=== PATIENT | female | born 1980 | race Caucasian/White ===

== ENCOUNTER 2018-12-01 10:00 | Outpatient (RCR) | payer SELFPAY ==
--- NOTE | 2018-10-14 17:17 | HP.PTEVAL ---
Patient's Visit Information CHRISTOPHER JAY is a 38 year old F referred to Physical Therapy by DANE MEDINA with a diagnosis of LEFT SHOULDER TENDONITIS. Date of Evaluation: 10/14/18 Physical Therapist: Amberly Matos PT, Cert MDT - Visit Plan Frequency: 2-3x /Week Duration: 4-6 Weeks Plan: FOCUS ON WRITTEN HEP. POSTURE CORRECTION/STRENGTHENING, INSTRUCTION IN APPROPRIATE BODY MECHANICS AND ACTIVITY MODIFICATIONS. MAGUI UE ROM, STRETCHING AND STRENGTHENING. HEP INSTRUCTION. 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 Disability: NO. Present symptoms: LEFT SHOULDER PAIN. NO NUMBNESS OR TINGLING. Present since: CHRONIC WITH A FLARE UP 3 WEEKS AGO. Pain Scale: Worst - 7/10 Least - 0/10. Currently: 0/10. Commenced as a result of: NO APPARENT REASON. 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 Symptoms at onset: LEFT SHOULDER. Worse: TWISTING IT, REACHING BEHIND BACK, HANGING LAUNDRY, SWEEPING WITH BROOM. Better: REST, CHANGE POSITION, AVOID AGGREVATING ACTIVITIES, IBUPROFEN. Disturbed sleep: YES. Previous history/Previous treatment: H/O OF LEFT SHOULDER PAIN FOR YEARS WITH INTERMITTENT FLARE UPS MAINLY SELF TREATED. THIS EPISODE - CORTISONE SHOT ABOUT A WEEK AGO - PATIENT REPORTS THAT HELPED A LOT. Dizziness: NO. Tinnitis: NO. Nausea: NO. Shortness of Breath: NO. Difficulty Swollowing: NO. Gait: NORMAL. Accidents: NO. Unexplained weight loss: NO. Imaging: RECENT LEFT SHOULDER X-RAY - PATIENT REPORTS SHE WAS ORIGINALLY TOLD TENDONITS AND THEN DX'S WITH SMALL RCT. PMH/Recent major surgery: UNREMARKABLE. PLOF (Prior Level of Function): UNLIMITED - Objective Sitting Posture/Standing Posture: POOR. FORWARD HEAD AND ROUNDED SHOULDERS. NO TORTICOLLIS. Active Correction of posture: NE. Other Observations: INDEP GAIT AND TRANSFERS. Motor deficit: RIGHT UE 5/5. LEFT SHOULDER: FLEX 3-/5, ABD 3-/5, IR 2/5, ER 2+/5. ELBOW 4/5, INSOLE REINFORCER 35LBS. ACTUALLY 35 LBS MAGUI AND PATIENT REPORTS RIGHT WRIST IS SORE FROM WORKING OUTSIDE YESTERDAY. Sensory deficit: NO. ROM deficit: AROM LEFT SHOULDER FLEX 120 DEG, ABD 90 DEG. PROM LEFT SHOULDER IN SUPINE FLEX 130 DEG, ABD 123 DEG, IR/ER 23 DEG/70 DEG (WITH 80 DEG ABD). INTERNAL ROTATION VERY PAINFUL AND LIMITED. Reflexes: NT. Dural Signs: NT. Cervical Mvmt Loss: CERVICAL ROM WFL AND TESTING DOES NOT PROVOKE PAIN. Postural strength: POOR. Palpation: MILD TENDERNESS OF ENTIRE LEFT SHOULDER REGION. - Goals Goal 1:: DECREASE C/O LEFT SHOULDER PAIN Goal Time Frame: 4-6 Weeks Goal 2:: IMPROVE LEFT UE FUNCTIONAL ROM Goal Time Frame: 4-6 Weeks Goal 3:: IMRPOVE LEFT UE FUNCTIONAL STRENGTH Goal Time Frame: 4-6 Weeks Goal 4:: INDEP HEP FOR CONTINUED IMPROVEMENT ONCE FORMAL PHYSICAL THERAPY CONCLUDES. Goal Time Frame: 4-6 Weeks - Rehabilitation Potential Rehabilitation Potential: Fair - Anticipated Interventions Patient/Client Instruction: Educate patient on: Condition, Plan of Care, Risk Factors, Benefits of Fitness Program For the Purpose of:: To improve self management Therapeutic Exercise to Include: Strength training, Body mechanics, Postural training, Flexibilty training, Passive ROM, Active ROM, Scapular Strength/Stabilization For the Purpose of:: To decrease pain, To increase ROM, To improve muscle performance and motor function, To increase tolerance to activity/condition/position, To improve ability of physical actions for home/community/work/leisure Manual Therapy Techniques to Include: Mobilization, Passive ROM, Soft tissue mobilization Comment: LEFT SHOULD JOINT MOBS AND PROM For the Purpose of:: To decrease pain, To increase ROM, To improve muscle performance and motor function, To decrease soft tissue restriction, To increase flexibility/ROM TENS: Yes Thermo therapy (hot pack): Yes Ultrasound (thermal/non thermal): Yes For the Purpose of:: To decrease pain, To decrease swelling/inflammation, To increase ROM, To improve nutrient delivery to tissue Thank you for the opportunity to evaluate your patient. For Medicare and Medicare HMO plans, please review the plan of care and approve it. It will need to be FAXED BACK to us at [phone] for Medicare purposes. For Medicare only, by signing this I certify the plan of care. Please let me know if there are questions or concerns regarding this plan of care. Physician Signature: Date:
--- NOTE | 2018-12-01 11:32 | HP.PTDCSUM_ITS ---
HP - PT D/C Summary It has been my pleasure to treat CHRISTOPHER JAY under orders from DANE MEDINA, for the diagnosis of LEFT SHOULDER TENDONITIS for a total of 9 visit(s). Discharge Date: Please see the following information for a summary of their discharge status. - Subjective Subjective: STATES SHE WAS ON VACATION LAST WEEK. PATIENT REPORTS HER SHOULDER IS DOING BETTER. SHE REPORTS IF SHE EXERCISES TOO MUCH IT FLARES UP. SHE REPORTS IT STILL CRACKLES SOMETIMES WITH CERTAIN MVMTS AND THAT IS WHAT BOTHERS IT THE MOST. - Pain LEFT SHOULDER Pain Intensity (Out of 10): 1 - Overall Improvement % Improvement: 80 - Objective Objective/Function: PATIENT WITH FULL LEFT SHOULDER ROM NOW ALL PLANES EXCEPT FORWARD FLEXION IN LYING (170 DEG). THIS AFFECTS ABD WELL MOVING ARM MORE INTO SCAPTION WITH TESTING OF ABD IN SUPINE. LEFT SHOULDER STRENGTH IN MID- RANGE: FLEX 4/5, ABD 4/5, IR 5/5, ER 4-/5. SHE IS INDEP WITH A HEP AND APPROPRIATE FOR DISCHARGE TO HEP AT THIS TIME. INSTRUCTED PATIENT TO RETURN TO MD IF SHE DOES NOT CONTINUE TO IMPROVE OR WORSENS. - Goals Goal 1:: DECREASE C/O LEFT SHOULDER PAIN Goal Progress: Goal Met Goal 2:: IMPROVE LEFT UE FUNCTIONAL ROM Goal Progress: Goal Met Goal 3:: IMRPOVE LEFT UE FUNCTIONAL STRENGTH Goal Progress: Goal Met Goal 4:: INDEP HEP FOR CONTINUED IMPROVEMENT ONCE FORMAL PHYSICAL THERAPY CONCLUDES. Goal Progress: Goal Met - Plan Plan: D/C TO INDP HEP. PATIENT IS AGREEABLE. - D/C Information If there are questions or concerns regarding this patient's physical therapy, please feel free to call me at [phone]. Thank you for the referral of this patient. Sincerely, Amberly Matos, PT, Cert MDT
== END 2018-12-01 15:16 | disposition home or self-care (01) ==
LOC: PT 10:00
PROVIDERS: Family Provider Family Medicine; PCP Family Medicine
DX: M75.100 Unspecified rotator cuff tear or rupture of unspecified shoulder, not specified as traumatic (principal)
CPT/HCPCS: 97014; 97035; 97110; 97140; 97530; G0283

== ENCOUNTER → 2022-11-12 | Outpatient (CLI) | payer SELFPAY ==
--- NOTE | 2022-11-12 13:39 | BI_ITS ---
MAMMOGRAPHY - BILATERAL SCREENING REASON FOR EXAM: Female, 42 years old. Routine annual screening examination. PERTINENT HISTORY: Grandmother with breast cancer. TECHNIQUE: Digital bilateral breast renetta (3D mammographic acquisition) in the CC and MLO projections. 2-D mediolateral oblique (MLO) and craniocaudad (CC) views of both breasts were obtained. CAD: Full Field Digital Mammography with Computer Added Detection was performed. COMPARISON: None. Baseline examination. FINDINGS: Breast Composition: Portions of the breasts are extremely dense which lowers sensitivity of mammography. Finding 1: Indeterminate clustered microcalcifications in the right upper slightly outer breast. Further assessment with spot magnification views is recommended. Finding 2: Indeterminate clustered microcalcifications in the left lower inner breast. Further assessment with spot magnification views is recommended. No other significant abnormalities are identified. BI/SCRN MAMM (CAD)W/RENETTA BILAT IMPRESSION: Further imaging evaluation recommended, as described above. (E) Recall Side: Both Breasts ASSESSMENT CATEGORY: BIRADS Category 0: Incomplete. Need additional imaging evaluation. A letter regarding these results will be sent to the patient by the facility within 30 days. Approximately 10% of breast cancers are not detected by mammography. A normal mammogram should not delay biopsy of a clinically suspicious abnormality. Electronically Signed: Rigoberto Graham MD at 8:29 EDT ,
== END | disposition home or self-care (01) ==
LOC: OPBI 13:34
PROVIDERS: PCP Family Medicine; Referring Provider Nurse Practitioner Family; Visit Provider Nurse Practitioner Family
DX: Z12.31 Encounter for screening mammogram for malignant neoplasm of breast (principal)
CPT/HCPCS: 77063; 77067

== ENCOUNTER → 2022-11-25 | Outpatient (CLI) | payer SELFPAY, OTHER ==
--- NOTE | 2022-11-25 08:56 | BI_ITS ---
MAMMOGRAPHY - BILATERAL DIAGNOSTIC REASON FOR EXAM: Female, 42 years old. Abnormal screening mammogram. PERTINENT HISTORY: Grandmother with breast cancer. TECHNIQUE: Digital bilateral breast vicente (3D mammographic acquisition) in the CC and MLO projections. 2-D mediolateral oblique (MLO) and craniocaudad (CC) views of both breasts were obtained. CAD: Full Field Digital Mammography with Computer Added Detection was performed. COMPARISON: Comparison is made with prior study dated November 12, 2022. FINDINGS: Breast Composition: The breasts are extremely dense, which lowers the sensitivity of mammography. Once again, there is a cluster microcalcifications in the upper slightly outer aspect of the right breast. Biopsy is recommended. No focal clustering is seen in the left breast. No other significant abnormalities are identified. BI/DIAG MAMM W/CAD, BILAT IMPRESSION: Persistent cluster of microcalcifications in the upper slightly outer aspect of the right breast. Biopsy is recommended. ASSESSMENT CATEGORY: BIRADS Category 4: Suspicious - Biopsy Should Be Considered. A letter regarding these results will be sent to the patient by the facility within 30 days. Approximately 10% of breast cancers are not detected by mammography. A normal mammogram should not delay biopsy of a clinically suspicious abnormality. Electronically Signed: Chirag De La Paz MD at 10:10 EDT ,
== END | disposition home or self-care (01) ==
PROVIDERS: PCP Family Medicine; Referring Provider Nurse Practitioner Family; Visit Provider Nurse Practitioner Family
DX: R92.8 Other abnormal and inconclusive findings on diagnostic imaging of breast (principal); Z80.3 Family history of malignant neoplasm of breast
CPT/HCPCS: 77066

== ENCOUNTER → 2022-12-09 | Outpatient (CLI) | payer SELFPAY, OTHER ==
--- NOTE | 2022-12-09 | BRBX_PTH ---
PATIENT: CHRISTOPHER JAY LOC: [facility] U#:[id number] AGE/SX: 42/F ROOM: RE12/09/[address]: Dr. Celeste Carrera MD : 1980 BED: DIS: 12/09/2022 SPEC #: [id number] RECD: 12/09/22 13:52 STATUS: CLARISSA REJudie #: [id number] SAMULE: 12/09/22 00:[address]: Celeste Carrera DEPT: SURGICAL PATHOLOGY RECD BY: Reno Templeton ENTERED: 12/09/22 13:52 SP TYPE: BREAST BX OTHR DR: Dr. Mark Mora MD Tissues: Right breast, NOS Procedures: Surgery Specimen Level IV HEADER OPERATION: Right breast stereotactic needle core biopsy PRE-OP DIAGNOSIS: Microcalcifications lateral retroareolar area TISSUE SUBMITTED: Right breast ISCHEMIC TIME: 2 minutes FIXATION TIME: 7 hours MICROSCOPIC DIAGNOSIS Right breast, stereotactic core biopsy: Fibrocystic change with rare polarizable microcalcifications. Focal intraductal hyperplasia without atypia. No evidence of malignancy. AM:deb 12/10/2022 MICROSCOPIC DESCRIPTION Slides are reviewed. GROSS DESCRIPTION Received is one container labeled with the patient's name and not further designated. The specimen consists of multiple irregular and elongated fragments of curry-yellow soft tissue that in aggregate measure 5.5 x 3.5 x 0.2 cm. The specimen is totally submitted in two cassettes. / AM:deb 12/09/2022 TC:5 CPT: 93741
--- NOTE | 2022-12-09 12:48 | OP.PCM_ITS ---
Report of Operation Date of Procedure: 12/09/22 Pre-Operative Diagnosis: Right breast microcalcifications Post-Operative Diagnosis: Same Surgery/Procedure Performed:: Stereotactic guided right breast biopsy Surgeon: Celeste Carrera Type of Anesthesia: Local Specimen's removed: right breast microcalc. Estimated Blood Loss (mL): 150 CC Description of Procedure: Procedure: Right stereotactic core biopsy Indications: 42 year-old female with microcalc in the adjacent to retroareolar of the right breast. Risk benefits were discussed the patient and she elected to proceed with stereotactic core biopsy with clip placement Description of procedure: Patient was brought into the mammography suite and laid prone on the stereotactic table. A timeout was completed verifying correct patient, procedure, site, specially, prior to beginning procedure. The right breast was prepped and draped in usual sterile fashion and using local anesthesia was obtained with 1% lidocaine with epi. Patient's right breast was positioned and placed into compression. Initial film showed calcifications are in the center of the compression paddle. 15? views were then taken. The calcifications were localized. The left breast was prepped draped in usual sterile fashion. An 8-gauge mammotome was set up according to the digital coordinates. The tract of the mammotome was anesthetized with local anesthesia and an incision was made with the 11 blade scalpel at the entry site. The mammotome was advanced to the prefire state. Pre-prior films were checked and verified. The mammotome was fired. Post fire films were also checked and verified. Biopsies were taken from from 1:00 to 12:00. The specimen was x- rayed and some representation of the calcifications were within the specimen- however calcifications were more scattered through this area and not clustered. Mammotome clip was placed at the 12 o'clock position. Patient did have some bleeding but 150 cc of blood loss initially did lose the first petite clip another 1 was placed. The mammotome was removed from the breast. An additional films were taken which showed all calcifications were removed and a clip was in place. Pressure was held for hemostasis for 25 minutes. Once hemostasis was assured the wound was dressed with Steri-Strips and OpSite. The patient tolerated the procedure well and was discharged from the mammography suite good condition. Complications none
== END | disposition home or self-care (01) ==
PROVIDERS: PCP Family Medicine; Referring Provider Surgery; Visit Provider Surgery
DX: R92.8 Other abnormal and inconclusive findings on diagnostic imaging of breast (principal)
CPT/HCPCS: 19082; 19081; 88305; J7050

== ENCOUNTER → 2023-12-12 | Outpatient (CLI) | payer SELFPAY ==
--- NOTE | 2023-12-12 09:04 | BI_ITS ---
MAMMOGRAPHY - BILATERAL DIAGNOSTIC REASON FOR EXAM: Female, 43 years old. Palpable lump in the upper inner aspect of the right breast. PERTINENT HISTORY: Grandmother with breast cancer. Prior right stereotactic breast biopsy. TECHNIQUE: Digital bilateral breast vicente (3D mammographic acquisition) in the CC and MLO projections. 2-D mediolateral oblique (MLO) and craniocaudad (CC) views of both breasts were obtained. CAD: Full Field Digital Mammography with Computer Added Detection was performed. COMPARISON: Comparison is made with prior study November 12, 2022 and November 25, 2022. FINDINGS: Breast Composition: The breasts are extremely dense, which lowers the sensitivity of mammography. There are no dominant masses or suspicious calcifications. A tissue clip marker is seen in the anterior upper lateral aspect of the right breast at the site of prior calcifications. The number of microcalcifications of decreased. No other significant abnormalities are identified. There has been no significant change since the prior study. BI/DIAG MAMM W/CAD, BILAT IMPRESSION: Stable bilateral diagnostic mammogram. With the patient''s history of a palpable lump in the upper medial aspect of the right breast, correlation with ultrasound is recommended. ASSESSMENT CATEGORY: BIRADS Category 0: Incomplete. Need additional imaging evaluation. A letter regarding these results will be sent to the patient by the facility within 30 days. Approximately 10% of breast cancers are not detected by mammography. A normal mammogram should not delay biopsy of a clinically suspicious abnormality. Electronically Signed: Chirag De La Paz MD at 12:17 EDT ,
--- NOTE | 2023-12-12 09:05 | US_ITS ---
STUDY: ULTRASOUND BREAST - RIGHT REASON FOR EXAM: Female, 43 years old. Right breast lump. TECHNIQUE: Axial and longitudinal images of the RIGHT breast were performed with a high resolution ultrasound transducer. # OF IMAGES: 10 COMPARISON: Comparison is made with prior mammogram done earlier in day. FINDINGS: RIGHT Breast: The upper inner quadrant of the right breast was examined with ultrasound. There is evidence of fibroglandular tissue. No sonographic abnormality is seen. US/Breast Limited Unilateral IMPRESSION: No sonographic abnormality is seen. ASSESSMENT CATEGORY: BIRADS Category 1: Negative. A letter regarding these results will be sent to the patient by the facility within 30 days. Electronically Signed: Chirag De La Paz MD at 12:18 EDT ,
== END | disposition home or self-care (01) ==
PROVIDERS: PCP Family Medicine
DX: N63.10 Unspecified lump in the right breast, unspecified quadrant (principal)
CPT/HCPCS: 76642; 77062; 77066; G0279